=== PATIENT | male | born 1965 | race Caucasian/White ===

== ENCOUNTER 2019-04-05 08:22 | Emergency (ER) | payer OTHER ==
[~2019-04-05] VITALS: Ht 182.9 cm; Wt 134.0 kg
[2019-04-05 08:25] VITALS: BP 157/93
[2019-04-05] MEDS ORDERED: BP MED PO (08:55)
[2019-04-05] MEDS ORDERED: LOSA50TA14 PO (08:56)
[2019-04-05] MEDS ORDERED: ASPI-515 PO (08:56)
--- NOTE | 2019-04-05 10:14 | NUR ---
Patient/Caregiver given discharge instructions and they have confirmed that they understand the instructions. Patient ambulatory with steady gait.
== END 2019-04-05 10:16 | disposition home or self-care (01) ==
LOC: ED 09:53
DX: M79.672 Pain in left foot (principal); M13.872 Other specified arthritis, left ankle and foot; I10 Essential (primary) hypertension
CPT/HCPCS: 99283